=== PATIENT | male | born 1995 ===

== ENCOUNTER 2017-02-09 07:48 | Emergency (ER) | payer BC ==
[2017-02-09 07:59] VITALS: BP 133/83
--- NOTE | 2017-02-09 09:01 | UC ---
Skin Complaint HPI - HPI Summary HPI Summary: Patient arrives to with CC of tick bite on L upper arm yesterday, also one on his shirt, and today, noticed a tick on R upper leg. [place] Prior to yesterday, he has not been around ticks or in the environment so knows the ticks appeared since yesterday. The only attached tick on his right upper thigh he describes as small and black without engorgement, he was able to dislodge yesterday with head intact. He arrives today with no complaints, just wanting to make sure he does not need medication. Denies N/V/C/D, RUSSELL, neuro symptoms, neck pain, muscle aches or visual disturbances. He has cardiomegaly but denies other symptoms. Patient was then encouraged to follow up with PCP related to cardiomegaly as he states he has not seen a provider in over 2 years. Patient agrees. - History of Current Complaint Chief Complaint: UCSkin Stated Complaint: TICK Hx Obtained From: Patient Onset/Duration: Sudden Onset Skin Exposure Onset/Duration: Hours Ago Timing: Constant Onset Severity: Mild Current Severity: Mild Pain Intensity: 1 Pain Scale Used: 0-10 Numeric Location: Discrete - right upper thigh Aggravating: Nothing Alleviating: Nothing Associated Signs & Symptoms: Positive: Negative Related History: Possible Reaction to: Insect - small black tick - Allergy/Home Medications Allergies/Adverse Reactions: Allergies Allergy/AdvReac Type Severity Reaction Status Date / Time No Known Allergies Allergy Verified 02/09/17 07:52 Home Medications: Home Medications NK [No Home Medications Reported] 02/09/17 [History Confirmed 02/09/17] Review of Systems Constitutional: Negative Skin: Other - small red reaction around previous tick attachment with no EM or concern for lyme Eyes: Negative ENT: Negative Respiratory: Negative Cardiovascular: Negative Motor: Negative Neurovascular: Negative Musculoskeletal: Negative Neurological: Negative All Other Systems Reviewed And Are Negative: Yes PMH/Surg Hx/FS Hx/Imm Hx Previously Healthy: Yes Cardiovascular History Of: Reports: Cardiac Disorders - FAMILIAL HEART CONDITION - athletes heart - Surgical History Surgical History: None - Family History Known Family History: Positive: Unknown - Social History Occupation: Unemployed Lives: With Family Alcohol Use: Rare Substance Use Type: None Smoking Status (MU): Current Every Day Smoker Type: Smokeless Tobacco Amount Used/How Often: 1 can weekly Length of Time of Smoking/Using Tobacco: 11 YRS Have You Smoked in the Last Year: Yes Physical Exam Triage Information Reviewed: Yes Appearance: Well-Appearing, No Pain Distress, Well-Nourished Vital Signs: Initial Vital Signs Temp 97.9 F 02/09/17 07:54 Pulse 68 02/09/17 07:54 Resp 18 02/09/17 07:54 BP 133/83 02/09/17 07:54 Pulse Ox 100 02/09/17 07:54 Vital Signs Reviewed: Yes Eye Exam: Normal Eyes: Positive: Conjunctiva Clear ENT Exam: Normal ENT: Positive: Normal ENT inspection Dental Exam: Normal Neck exam: Normal Neck: Positive: Supple, Nontender, No Lymphadenopathy Respiratory Exam: Normal Respiratory: Positive: Chest non-tender, Lungs clear Cardiovascular Exam: Normal Neurological Exam: Normal Neurological: Positive: Alert, Muscle Tone Normal Psychological Exam: Normal Psychological: Positive: Age Appropriate Behavior Skin: Positive: significant lesion(s) - small red raised reaction over area of tick - no EM Course/Dx - Course Course Of Treatment: According to the Infectious Diseases Society [place] ( IDSA) guidelines that recommend antibiotic prophylaxis only in patients who meet all of the following criteria: 1.Attached tick identified as an adult or nymphal I. scapularis tick (deer tick). 2.Tick is estimated to have been attached for 36 hours (by degree of engorgement or time of exposure). 3.Prophylaxis is begun within 72 hours of tick removal. Patient has had a tick for less than 36 hours so is not a candidate for prophylaxis. There is also no erythema migrans, neuro symptoms, muscle aches or headaches present. Patient OK to follow up with PCP as needed. He has cardiomegaly but denies other symptoms. Patient was then encouraged to follow up with PCP related to cardiomegaly as he states he has not seen a provider in over 2 years. Patient agrees. - Differential Diagnoses - Skin Complaint Differential Diagnoses: Poison [place], Poison [place], Tick Born Illness - Diagnoses Provider Diagnoses: Tick Bite Discharge - Discharge Plan Condition: Stable Disposition: HOME Patient Education Materials: Tick Bite (ED), Lyme Disease (ED) Referrals: Jesi Sánchez MD [Medical Doctor] - Additional Instructions: Tick Bite: Approach to prophylaxis : We agree with the Infectious Diseases Society [place] (IDSA) guidelines that recommend antibiotic prophylaxis only in patients who meet all of the following criteria (table 2) [10]: Attached tick identified as an adult or nymphal I. scapularis tick (deer tick). Tick is estimated to have been attached for 36 hours (by degree of engorgement or time of exposure). Prophylaxis is begun within 72 hours of tick removal. Local rate of infection of ticks with B. burgdorferi is 20 percent (these rates of infection have been shown to occur in parts of [place], parts of the [facility], and parts of [place] and [place]). If a tick bite happens again and is less than 24 hours, you may remove the tick with head intact. If over 24 hours, please come into UC. Prophylactic doxycycline is not recommended for ticks attached less than 36 hours.
== END 2017-02-09 08:54 | disposition home or self-care (01) ==
LOC: UCCORT 07:48
DX: S40.862A Insect bite (nonvenomous) of left upper arm, initial encounter (principal); W57.XXXA Bitten or stung by nonvenomous insect and other nonvenomous arthropods, initial encounter; Y93.9 Activity, unspecified; Y92.9 Unspecified place or not applicable; F17.220 Nicotine dependence, chewing tobacco, uncomplicated
CPT/HCPCS: 99211; G0463

== ENCOUNTER 2018-03-11 12:59 | Emergency (ER) | payer BC ==
[2018-03-11 13:20] VITALS: BP 158/66
--- NOTE | 2018-03-11 13:29 | UC ---
Bite Injury/Animal HPI - HPI Summary HPI Summary: tick bite left side of scalp x 1 day no fever, no chills, no rash , no joint or body aches - History of Current Complaint Chief Complaint: UCSkin Stated Complaint: TICK BITE (HEAD) Time Seen by Provider: 03/11/18 13:17 Hx Obtained From: Patient Severity Currently: Mild Severity Initially: Mild Pain Intensity: 2 Onset/Duration: Gradual Onset, Lasting Days - 1, Still Present Type of Bite: Wild Animal - Tick Has Animal Been Immunized?: N/A Aggravating Factor(s): Nothing Alleviating Factor(s): Nothing Associated Signs And Symptoms: Positive: Negative Animal Available for Observation: Yes Animal Control Notified: No - Allergies/Home Medications Allergies/Adverse Reactions: Allergies Allergy/AdvReac Type Severity Reaction Status Date / Time No Known Allergies Allergy Verified 03/11/18 13:21 PMH/Surg Hx/FS Hx/Imm Hx Previously Healthy: Yes - Surgical History Surgical History: None - Family History Known Family History: Positive: Unknown Negative: Diabetes - Social History Alcohol Use: Rare Substance Use Type: None Smoking Status (MU): Current Every Day Smoker Type: Smokeless Tobacco Amount Used/How Often: 1 can weekly Length of Time of Smoking/Using Tobacco: 11 YRS Have You Smoked in the Last Year: Yes Review of Systems Constitutional: Negative Skin: Negative Eyes: Negative ENT: Negative Respiratory: Negative Cardiovascular: Negative Is Patient Immunocompromised?: No All Other Systems Reviewed And Are Negative: Yes Physical Exam Triage Information Reviewed: Yes Appearance: Well-Appearing, No Pain Distress, Well-Nourished Vital Signs: Initial Vital Signs Temp 98.8 F 03/11/18 13:14 Pulse 74 03/11/18 13:14 Resp 18 03/11/18 13:14 BP 158/66 03/11/18 13:14 Pulse Ox 100 03/11/18 13:14 Vital Signs Reviewed: Yes Eye Exam: Normal Eyes: Positive: Conjunctiva Clear ENT: Positive: Normal ENT inspection, Hearing grossly normal, Pharynx normal Neck exam: Normal Neck: Positive: Supple, Nontender, No Lymphadenopathy Respiratory: Positive: Chest non-tender, Lungs clear, Normal breath sounds Cardiovascular: Positive: RRR, No Murmur, Pulses Normal Skin Exam: Other - tick bite left side scalp , tick was removed with tick twister Bite Injury Course/Dx - Differential Dx/Diagnosis Provider Diagnoses: tick bite scalp Discharge - Sign-Out/Discharge Documenting (check all that apply): Discharge/Admit/Transfer - Discharge Plan Condition: Stable Disposition: HOME Prescriptions: DOXYcycline CAP(*) [DOXYcycline 100MG CAP(*)] 200 mg PO DAILY #2 cap Patient Education Materials: Tick Bite (ED) Referrals: No Primary Care Phys,NOPCP [Primary Care Provider] - If Needed - Billing Disposition and Condition Condition: STABLE Disposition: HOME
== END 2018-03-11 13:30 | disposition home or self-care (01) ==
LOC: UCCORT 12:59
DX: S00.06XA Insect bite (nonvenomous) of scalp, initial encounter (principal); W57.XXXA Bitten or stung by nonvenomous insect and other nonvenomous arthropods, initial encounter; Y93.9 Activity, unspecified; Y92.9 Unspecified place or not applicable; F17.210 Nicotine dependence, cigarettes, uncomplicated
CPT/HCPCS: 99212; G0463